=== PATIENT | male | born 1950 | race Caucasian/White ===

== ENCOUNTER → 2024-02-15 | Outpatient (CLI) | payer MEDICARE, SELFPAY ==
[2024-02-15 11:31] LABS: Glucose Estimated Average 206 mg/dL (80-131); Hemoglobin A1C 8.8 % Hgb (4.8-6.0)
[2024-02-15 11:40] LABS: Alanine Aminotransferase 18 U/L (10-49); Albumin, Serum 4.7 gm/dL (3.4-4.8); Albumin/Globulin Ratio 1.8 (1.2-2.2); Alkaline Phosphatase 94 U/L (46-116); Anion Gap 9 (7-16); Aspartate Amino Transferase 13 U/L (0-34); BUN/Creatinine Ratio 23 Ratio (12-20); Bilirubin,Total 0.4 mg/dL (0.3-1.2); Blood Urea Nitrogen 21 mg/dL (9-23); Calcium 9.9 mg/dL (8.3-10.6); Calcium (Corrected) 9.9 mg/dL (8.5-10.1); Carbon Dioxide 26.2 mMol/L (20.0-31.0); Cardiac Risk Estimate 5.6 RATIO (4.0-6.7); Chloride 98 mMol/L (98-107); Cholesterol 189 mg/dL (132-200); Creatinine (Component) 0.9 mg/dL (0.6-1.3); Globulin 2.6 gm/dL (2.3-3.5); Glucose 387 mg/dL (74-106); HDL Cholesterol 34 mg/dL (40-60); LDL Cholesterol,Calculated 98 mg/dL (0-130); Osmolality,Calculated 285 (275-295); Potassium 4.5 mMol/L (3.4-5.1); Sodium 133 mMol/L (136-145); Thyroid Stimulating Hormone 3.04 uIU/mL (0.55-4.78); Total Protein 7.3 gm/dL (5.7-8.2); Triglycerides 287 mg/dL (30-150); eGFR > 60 See Note
[2024-02-15 11:42] LABS: Creatinine MALB Rnd Ur 17 mg/dL (30-125); Microalbumin Creat Ratio 235 mg/gCrea (<30); Microalbumin, Random Urine 40 mg/L (0-300)
[2024-02-15 13:22] LABS: Basophils # (Auto) 0.1 Thou/mm3 (0.0-0.2); Basophils % (Auto) 1 % (0-2.5); Eosinophils # (Auto) 0.3 Thou/mm3 (0.0-0.5); Eosinophils % (Auto) 4 % (0-10); Immature Granulocytes % (Auto) 0 % (0-0); Immature Granulocytes Auto 0.03 Thou/mm3 (0.00-0.00); Lymphocytes % (Auto) 25 % (10-50); Mean Corpuscular HGB Conc 31.1 g/dl (31.0-37.0); Mean Corpuscular Hemoglobin 19.2 pg (25.0-35.0); Mean Corpuscular Volume 62 fL (80-100); Monocytes # (Auto) 0.4 Thou/mm3 (0.0-0.8); Monocytes % (Auto) 5 % (0-12); Neutrophils # (Auto) 5.1 Thou/mm3 (1.8-7.7); Neutrophils % (Auto) 65 % (37-80); Nucleated Red Blood Cell % 0 /100 WBC (0); Platelet Count 230 Thou/mm3 (140-440); RDW Standard Deviation 37.2 fL (35.1-43.9); Red Blood Count 7.31 Miln/mm3 (4.50-5.90); White Blood Count 7.8 Thou/mm3 (3.8-10.6)
== END | disposition home or self-care (01) ==
LOC: COPL 10:01
PROVIDERS: PCP Family Medicine; Referring Provider Internal Medicine; Visit Provider Internal Medicine
DX: E11.65 Type 2 diabetes mellitus with hyperglycemia (principal); K59.00 Constipation, unspecified; E78.5 Hyperlipidemia, unspecified; I67.9 Cerebrovascular disease, unspecified
CPT/HCPCS: 36415; 80053; 80061; 82043; 82570; 83036; 84443; 85025

== ENCOUNTER → 2024-02-21 | Outpatient (CLI) | payer MEDICARE, SELFPAY ==
--- NOTE | 2024-02-21 14:00 | XR_ITS ---
Examination: CT chest, without intravenous contrast. Sagittal and coronal 2-D reconstructions. Exam date and time: February 21, 2024 1420 hours INDICATIONS: Smoking history 40 years CTDI:vol (mGy) 12.3 DLP: (mGycm) 474 Technique: Multiple 3.0 mm axial sections of the chest to been obtained. Bone and lung density settings are obtained. Sagittal and coronal 2-D reconstructions have been obtained. Low dose protocols were performed. One or more of the following dose reduction techniques were used; automated exposure control, adjustment of the mA and/or KV according to patient size, use of iterative reconstruction technique. Findings: Thoracic aortic calcification no aneurysmal dilatation Pulmonary artery segments are not enlarged Heavy calcification left main left anterior descending left circumflex right coronary arteries Mild enlargement cardiac contour 3 mm pulmonary nodule left upper lobe image 33 2 mm pulmonary nodule left upper lobe image 39 3 mm pulmonary nodule right upper lobe image 44 3 mm pulmonary nodule right lower lobe image 61 No pneumonia or pulmonary edema No visualized liver or splenic lesions Contracted gallbladder with tiny gallstones Small pancreatic calcifications Kidneys partially visualized, 3 mm right renal calculus no hydronephrosis IMPRESSION: Subcentimeter pulmonary nodules as above, with this study as baseline recommend continued 6 month follow-up CT chest without contrast 3 mm nonobstructing right renal calculus
== END | disposition home or self-care (01) ==
LOC: CCTX 13:36
PROVIDERS: PCP Internal Medicine; Referring Provider Internal Medicine; Visit Provider Internal Medicine
DX: Z12.2 Encounter for screening for malignant neoplasm of respiratory organs (principal); R91.8 Other nonspecific abnormal finding of lung field; N20.0 Calculus of kidney
CPT/HCPCS: 71271

== ENCOUNTER → 2024-10-13 | Outpatient (CLI) | payer MEDICARE, SELFPAY ==
[2024-10-13 10:45] LABS: Basophils # (Auto) 0.1 Thou/mm3 (0.0-0.2); Basophils % (Auto) 1 % (0-2.5); Eosinophils # (Auto) 0.4 Thou/mm3 (0.0-0.5); Eosinophils % (Auto) 5 % (0-10); Hematocrit 48.4 % (41.0-53.0); Hemoglobin 14.9 g/dL (13.5-16.0); Immature Granulocytes Auto 0.03 Thou/mm3 (0.00-0.00); Lymphocytes # (Auto) 1.7 Thou/mm3 (1.0-4.8); Lymphocytes % (Auto) 23 % (10-50); Mean Corpuscular HGB Conc 30.8 g/dl (31.0-37.0); Mean Corpuscular Hemoglobin 19.3 pg (25.0-35.0); Mean Corpuscular Volume 63 fL (80-100); Monocytes # (Auto) 0.3 Thou/mm3 (0.0-0.8); Monocytes % (Auto) 4 % (0-12); Neutrophils # (Auto) 5.0 Thou/mm3 (1.8-7.7); Neutrophils % (Auto) 67 % (37-80); Nucleated Red Blood Cell # 0.00 Thou/mm3 (0.00-0.00); Nucleated Red Blood Cell % 0 /100 WBC (0); Platelet Count 220 Thou/mm3 (140-440); RDW Standard Deviation 37.1 fL (35.1-43.9); Red Blood Count 7.71 Miln/mm3 (4.50-5.90); White Blood Count 7.5 Thou/mm3 (3.8-10.6)
[2024-10-13 10:56] LABS: Glucose Estimated Average 214 mg/dL (80-131); Hemoglobin A1C 9.1 % Hgb (4.8-6.0)
[2024-10-13 10:59] LABS: Alanine Aminotransferase 16 U/L (10-49); Albumin, Serum 4.6 gm/dL (3.4-4.8); Albumin/Globulin Ratio 1.8 (1.2-2.2); Alkaline Phosphatase 79 U/L (46-116); Anion Gap 10 (7-16); Aspartate Amino Transferase 20 U/L (0-34); BUN/Creatinine Ratio 17 Ratio (12-20); Bilirubin,Total 0.8 mg/dL (0.3-1.2); Blood Urea Nitrogen 15 mg/dL (9-23); Calcium 9.8 mg/dL (8.3-10.6); Calcium (Corrected) 9.8 mg/dL (8.5-10.1); Carbon Dioxide 25.5 mMol/L (20.0-31.0); Chloride 102 mMol/L (98-107); Creatinine (Component) 0.9 mg/dL (0.6-1.3); Globulin 2.5 gm/dL (2.3-3.5); Glucose 316 mg/dL (74-106); Osmolality,Calculated 286 (275-295); Potassium 4.2 mMol/L (3.4-5.1); Sodium 137 mMol/L (136-145); Total Protein 7.1 gm/dL (5.7-8.2); eGFR > 60 See Note
[2024-10-13 11:00] LABS: Creatinine MALB Rnd Ur 25 mg/dL (30-125); Microalbumin Creat Ratio 216 mg/gCrea (<30); Microalbumin, Random Urine 54 mg/L (0-300)
[2024-10-13 11:02] LABS: Vitamin B12 674 pg/mL (211-911)
[2024-10-13 11:35] LABS: Path Review Blood Smear Sent to Pathologist
== END | disposition home or self-care (01) ==
LOC: COPL 09:26
PROVIDERS: PCP Internal Medicine; Referring Provider Internal Medicine; Visit Provider Internal Medicine
DX: E11.65 Type 2 diabetes mellitus with hyperglycemia (principal); E78.5 Hyperlipidemia, unspecified; D51.9 Vitamin B12 deficiency anemia, unspecified
CPT/HCPCS: 36415; 80053; 82043; 82570; 82607; 83036; 85025

== ENCOUNTER → 2025-01-05 | Outpatient (CLI) | payer MEDICARE, SELFPAY ==
[2025-01-05 12:33] LABS: Glucose Estimated Average 192 mg/dL (80-131); Hemoglobin A1C 8.3 % Hgb (4.8-6.0)
[2025-01-05 12:35] LABS: Creatinine MALB Rnd Ur 56 mg/dL (30-125); Microalbumin Creat Ratio 545 mg/gCrea (<30); Microalbumin, Random Urine 305 mg/L (0-300)
== END | disposition home or self-care (01) ==
LOC: COPL 11:13
PROVIDERS: PCP Internal Medicine; Referring Provider Internal Medicine; Visit Provider Internal Medicine
DX: R21 Rash and other nonspecific skin eruption (principal); E11.65 Type 2 diabetes mellitus with hyperglycemia; R80.9 Proteinuria, unspecified
CPT/HCPCS: 36415; 82043; 82570; 83036